=== PATIENT | female | born 1990 ===

== ENCOUNTER 2020-06-27 04:17 | Emergency (ER) | payer SELFPAY ==
[~2020-06-27] VITALS: Ht 157.5 cm; Wt 76.3 kg
[2020-06-27 04:24] VITALS: BP 147/91
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
--- NOTE | 2020-06-27 05:12 | NUR ---
PT UPDATED ON CURRENT POC TO INCLUDE HEAD AND NECK CT. DENIES ANY QUESTIONS OR NEEDS AT THIS TIME.
--- NOTE | 2020-06-27 06:18 | NUR ---
Patient/Caregiver given discharge instructions and they have confirmed that they understand the instructions. Patient ambulatory with steady gait.
== END 2020-06-27 06:28 | disposition home or self-care (01) ==
LOC: ED 06:10
DX: S16.1XXA Strain of muscle, fascia and tendon at neck level, initial encounter (principal); S09.90XA Unspecified injury of head, initial encounter; V47.5XXA Car driver injured in collision with fixed or stationary object in traffic accident, initial encounter; Y93.89 Activity, other specified; Y92.488 Other paved roadways as the place of occurrence of the external cause; Y99.8 Other external cause status
CPT/HCPCS: 70450; 72125; 99285